=== PATIENT | female | born 1985 | race Caucasian/White ===

== ENCOUNTER 2023-12-31 19:47 | Emergency (ER) | payer OTHER, SELFPAY ==
[2023-12-31] MEDS ORDERED: Ketorolac Tromethamine 30 MG (1 mL) VIAL ONE (20:12)
== END 2023-12-31 21:55 | disposition home or self-care (01) ==
LOC: CSHERS 19:47
DX: R07.81 Pleurodynia (principal)
CPT/HCPCS: 71045; 96374; J1885